=== PATIENT | female | born 1985 ===

== ENCOUNTER 2018-07-04 23:19 | Emergency (ER) | payer SELFPAY ==
[2018-07-05] MEDS ORDERED: Sodium Chloride 0.9% 1,000 ML IV ONE (00:42)
[2018-07-05 00:54] LABS: BASO # 0.1 K/uL (0.0-0.2); BASO % 0.6 % (0.0-2.0); EOS # 0.3 K/uL (0.0-0.7); HEMOGLOBIN 13.4 g/dL (11.0-16.0); LYMPH # 2.6 K/uL (1.0-4.3); LYMPH % 23.7 % (20.0-40.0); MEAN CELL VOLUME 96.5 fL (81.0-99.0); MEAN CORPUSCULAR HGB CONC 33.1 g/dL (33.0-37.0); MEAN PLATELET VOLUME 11.3 fL (7.2-11.7); MONO # 0.9 K/uL (0.0-0.8); MONO % 8.3 % (0.0-10.0); NEUT # 7.1 K/uL (1.8-7.0); NEUT % 64.4 % (50.0-75.0); NRBC % 0.5 % (0.0-2.0); RBC 4.18 Mil/uL (3.80-5.20); RED CELL DISTRIBUTION WIDTH 12.7 % (11.5-14.5)
[2018-07-05 00:58] LABS: SQUAMOUS EPITHIAL < 1 /hpf (0-5); URINE BILIRUBIN NEGATIVE (NEGATIVE); URINE BLOOD 1+ (NEGATIVE); URINE CLARITY Clear (Clear); URINE COLOR Yellow (YELLOW); URINE GLUCOSE (UA) NORMAL (Normal); URINE LEUKOCYTE ESTERASE NEG Leu/uL (Negative); URINE PROTEIN NEGATIVE (NEGATIVE); URINE UROBILINOGEN NORMAL mg/dL (0.2-1.0)
[2018-07-05 00:59] LABS: HCG,QUALITATIVE URINE NEGATIVE (NEGATIVE)
[2018-07-05 01:04] LABS: ALB/GLOB RATIO 1.5 (1.0-2.1); ALBUMIN 4.2 g/dL (3.5-5.0); BLOOD UREA NITROGEN 16 mg/dL (7-17); CALCIUM 9.2 mg/dl (8.6-10.4); GFR NON-AFRICAN AMERICAN > 60; LIPASE 99 U/L (23-300)
[2018-07-05 01:06] LABS: ALT/SGPT 9 U/L (9-52); AST/SGOT 30 U/L (14-36)
--- NOTE | 2018-07-05 01:44 | C.PDOC ---
History Of Present Illness 32 year old female presents to the ED c/o right sided abdominal pain. Patient reports today she had a bowel movement but it was hard. Patient states her diet consists of fast food, hamburgers and Japanese fries. Patient denies fever, c hills, nausea, vomit, diarrhea, rash, back pain, dysuria, hematuria. Time Seen by Provider: 07/05/18 00:39 Chief Complaint (Nursing): Abdominal Pain History Per: Patient History/Exam Limitations: no limitations Onset/Duration Of Symptoms: Days Current Symptoms Are (Timing): Still Present Context: Food Location Of Pain/Discomfort: Diffuse Radiation Of Pain To:: None Quality Of Discomfort: "Pain" Associated Symptoms: denies: Nausea, Vomiting, Diarrhea Recent travel outside of the [place]: No Additional History Per: Patient Abnormal Vaginal Bleeding: No Past Medical History Reviewed: Historical Data, Nursing Documentation, Vital Signs Vital Signs: Last Vital Signs Temp 98.4 F 07/04/18 23:32 Pulse 71 07/04/18 23:32 Resp 20 07/04/18 23:32 BP 106/68 07/04/18 23:32 Pulse Ox 100 07/04/18 23:32 - Medical History PMH: No Chronic Diseases Surgical History: No Surg Hx Family History: States: Unknown Family Hx - Social History Hx Alcohol Use: No Hx Substance Use: No - Immunization History Hx Tetanus Toxoid Vaccination: No Hx Influenza Vaccination: No Hx Pneumococcal Vaccination: No Review Of Systems Constitutional: Negative for: Fever, Chills Cardiovascular: Negative for: Chest Pain Respiratory: Negative for: Cough, Shortness of Breath Gastrointestinal: Positive for: Abdominal Pain. Negative for: Nausea, Vomiting, Diarrhea Genitourinary: Negative for: Dysuria, Hematuria Musculoskeletal: Negative for: Back Pain Skin: Negative for: Rash Physical Exam - Physical Exam Appears: Non-toxic, No Acute Distress Skin: Normal Color, Warm, Dry Head: Atraumatic, Normacephalic Eye(s): bilateral: Normal Inspection Oral Mucosa: Moist Neck: Normal ROM, Supple Chest: Symmetrical Cardiovascular: Rhythm Regular Respiratory: Normal Breath Sounds, No Rales, No Rhonchi, No Wheezing Gastrointestinal/Abdominal: Soft, No Tenderness, No Guarding, No Rebound, Other (dull to bilateral abdomen, tympnic to epigastrum. Negative Ramirez's and [place]'s) Extremity: Normal ROM, No Tenderness, No Swelling Neurological/Psych: Oriented x3, Normal Speech, Normal Cognition Gait: Steady ED Course And Treatment - Laboratory Results Result Diagrams: 07/05/18 00:49 07/05/18 00:49 Lab Results: Total Bilirubin 0.7 mg/dL (0.2-1.3) 07/05/18 00:49 AST 30 U/L (14-36) 07/05/18 00:49 ALT 9 U/L (9-52) 07/05/18 00:49 Alkaline Phosphatase 48 U/L (38-126) 07/05/18 00:49 Total Protein 7.0 g/dL (6.3-8.3) 07/05/18 00:49 Albumin 4.2 g/dL (3.5-5.0) 07/05/18 00:49 Globulin 2.7 gm/dL (2.2-3.9) 07/05/18 00:49 Albumin/Globulin Ratio 1.5 (1.0-2.1) 07/05/18 00:49 Lipase 99 U/L (23-300) 07/05/18 00:49 Urine Color Yellow (YELLOW) 07/05/18 00:49 Urine Clarity Clear (Clear) 07/05/18 00:49 Urine pH 5.0 (5.0-8.0) 07/05/18 00:49 Ur Specific [place] 1.015 (1.003-1.030) 07/05/18 00:49 Urine Protein Negative mg/dL (NEGATIVE) 07/05/18 00:49 Urine Glucose (UA) Normal mg/dL (Normal) 07/05/18 00:49 Urine Ketones Negative mg/dL (NEGATIVE) 07/05/18 00:49 Urine Blood 1+ (NEGATIVE) H 07/05/18 00:49 Urine Nitrate Negative (NEGATIVE) 07/05/18 00:49 Urine Bilirubin Negative (NEGATIVE) 07/05/18 00:49 Urine Urobilinogen Normal mg/dL (0.2-1.0) 07/05/18 00:49 Ur Leukocyte Esterase Neg Lisette/uL (Negative) 07/05/18 00:49 Urine RBC (Auto) 28 /hpf (0-3) H 07/05/18 00:49 Ur Squamous Epith Cells < 1 /hpf (0-5) 07/05/18 00:49 Urine HCG, Qual Negative (NEGATIVE) 07/05/18 00:49 Urine HCG, Qual Negative (NEGATIVE) 07/05/18 00:49 Lab Interpretation: Normal (no L shift, UA neg.) Urine POC: Negative O2 Sat by Pulse Oximetry: 100 (ON RA) Pulse Ox Interpretation: Normal - Radiology CXR: Interpreted by Me CXR Interpretation: Yes: No Acute Disease - Other Rad abd x 2 X-Ray: Interpreted by Me (+FOS) Reevaluation Time: :44 Reassessment Condition: Improved Medical Decision Making Medical Decision Making: Plan: * Labs * Obstructive series X-Ray * Mag citrate 300 ml PO * IV fluids * Toradol 30 mg IVP * UA acute on chronic constipation Disposition Doctor Will See Patient In The: Office Counseled Patient/Family Regarding: Studies Performed, Diagnosis - Disposition Referrals: [facility] [Outside] [facility] [Outside] [facility] [Outside] [facility] [Outside] Disposition: HOME/ ROUTINE Disposition Time: :44 Condition: GOOD Additional Instructions: any un purgante ahora, y re-evalua tu molestia del abdomen despues de usar el michele 2-3 veces Cambios de dieta y ejercisio 7 verduras y frutas crudas diarios purgantes occasionalmente glenn necessario prueba de embarasso NEGATIVO Instructions: Constipation, Adult (DC) Forms: [facility] ([place]i) Print Language: ANGUILLAN - Clinical Impression Clinical Impression: Abdominal pain, colicky - Scribe Statement The provider has reviewed the documentation as recorded by the Scribe Zi Muro All medical record entries made by the Scribe were at my direction and personally dictated by me. I have reviewed the chart and agree that the record accurately reflects my personal performance of the history, physical exam, medical decision making, and the department course for this patient. I have also personally directed, reviewed, and agree with the discharge instructions and disposition.
[2018-07-05] MEDS ORDERED: Magnesium Citrate Oral SOL (300 ml) PO ONE (01:46)
[2018-07-05 01:55] VITALS: BP 110/70; PULSE 84; RESP 14; TEMP 98
[2018-07-05 01:59] VITALS: O2SAT 100
--- NOTE | 2018-07-05 11:34 | RAD ---
Abdomen three views HISTORY: Abdominal pain. COMPARISON: None available. FINDINGS: Moderate fecal retention in the colon. Few mildly distended loops of small bowel in the right emily abdomen. Mild scoliotic curvature of the mid lumbar spine. Lung hood are clear. IMPRESSION: Moderate fecal retention in the colon. Few mildly distended loops of small bowel in the right emily abdomen. Mild scoliotic curvature of the mid lumbar spine.
== END 2018-07-05 01:54 | disposition home or self-care (01) ==
LOC: C.ER 23:19
DX: R10.84 Generalized abdominal pain (principal)
CPT/HCPCS: 74022; 80053; 81001; 83690; 84703; 85025; 96374; 99284; J1885; J7030